=== PATIENT | female | born 1965 | race African-American/Black ===

== ENCOUNTER 2017-02-20 13:47 | Inpatient (IN) ==
[2017-02-20 14:18] LABS: Basophils % 0.3 % (0.0-0.8); Eosinophils # 0.1 10*3/uL (0.0-0.87); Eosinophils % 0.7 % (0.00-10.9); Hematocrit 35.7 VOL% (35.7-47.0); Hemoglobin 11.9 GM/DL (12.0-16.0); Immature Granulocytes % 0.5 %; Immature Granulocytes Absolute 0.05 #; Lymphocytes % 18.4 % (21.3-54.2); Mean Corpuscular HGB Conc 33.3 GM/DL (32-36); Mean Corpuscular Hemoglobin 31 PG (27-34); Mean Platelet Volume 10.2 FL (9.6-12.0); Monocytes # 0.7 10*3/uL (0.11-0.8); Monocytes % 6.6 % (1.7-12.7); Neutrophils # 7.9 10*3/uL (1.4-7.4); Neutrophils % 73.5 % (38.7-73.9); Platelet Count 189 T/CUMM (130-400); Red Blood Count 3.84 MC/CUMM (3.8-5.5); Red Cell Distribution Width 12.9 % (9.3-17.3); White Blood Count 10.7 T/CUMM (4-12)
[2017-02-20 14:44] LABS: Albumin 3.1 G/DL (3.4-5.0); Bilirubin,Total 0.4 MG/DL (0.2-1.0); Calcium 9.1 MG/DL (8.5-10.1); Osmolality,Calculated 279.7 MOS/KG (273-304); Total Protein 8.4 G/DL (6.4-8.3)
[2017-02-20] MEDS ORDERED: MORPHINE 2 MG/1 ML SYRINGE ONE (15:36)
[2017-02-20] MEDS ORDERED: ONDANSETRON 4 MG/2 ML VIAL ONE (15:37)
[2017-02-20] MEDS ORDERED: MORPHINE 2 MG/1 ML SYRINGE IM STA (15:37)
[2017-02-20] MEDS ORDERED: ONDANSETRON 4 MG/2 ML VIAL IM STA (15:38)
[2017-02-20] MEDS ORDERED: GLUCAGON 1 MG VIAL IM PRN (16:52)
[2017-02-20] MEDS ORDERED: DEXTROSE 50% 25 GM/50 ML VIAL IV PRN (16:52)
[2017-02-20] MEDS ORDERED: ONDANSETRON 4 MG/2 ML VIAL IV PRN (16:52)
[2017-02-20] MEDS: INSULIN NPH/REGULAR 70/30 100 UNIT/ML SUBCUT SCH (18:21)
[2017-02-20] MEDS: metFORMIN 500 MG TABLET PO SCH (18:21)
[2017-02-20] MEDS: MORPHINE 2 MG/1 ML SYRINGE IV PRN (19:58)
[2017-02-20] MEDS: PIPERACILLIN/TAZOBACTAM 3,375 MG in SODIUM CHLORIDE 0.9% 100 ML IV SCH (20:02)
[2017-02-20] MEDS: ENOXAPARIN 40 MG/0.4 ML SYRINGE SUBCUT SCH (21:36)
[2017-02-20] MEDS: INSULIN REGULAR 100 UNIT/ML SUBCUT SCH (21:37)
[2017-02-21] MEDS: PIPERACILLIN/TAZOBACTAM 3,375 MG in SODIUM CHLORIDE 0.9% 100 ML IV SCH ×3 (04:21→20:56)
[2017-02-21 05:40] LABS: Basophils % 0.3 % (0.0-0.8); Eosinophils % 0.3 % (0.00-10.9); Hematocrit 34.7 VOL% (35.7-47.0); Hemoglobin 11.5 GM/DL (12.0-16.0); Immature Granulocytes % 0.6 %; Immature Granulocytes Absolute 0.06 #; Lymphocytes # 1.5 10*3/uL (1.4-4.0); Lymphocytes % 15.4 % (21.3-54.2); Mean Corpuscular HGB Conc 33.1 GM/DL (32-36); Mean Corpuscular Hemoglobin 31 PG (27-34); Mean Platelet Volume 10.7 FL (9.6-12.0); Monocytes # 0.9 10*3/uL (0.11-0.8); Monocytes % 8.7 % (1.7-12.7); Neutrophils # 7.3 10*3/uL (1.4-7.4); Neutrophils % 74.7 % (38.7-73.9); Platelet Count 181 T/CUMM (130-400); Red Blood Count 3.77 MC/CUMM (3.8-5.5); White Blood Count 9.7 T/CUMM (4-12)
[2017-02-21 06:04] LABS: Calcium 8.6 MG/DL (8.5-10.1); Osmolality,Calculated 280.8 MOS/KG (273-304); Potassium 4.6 MMOL/L (3.5-5.1); Risk Ratio 3.23; VLDL CHOLESTEROL 15.4 MG/DL
[2017-02-21] MEDS: metFORMIN 500 MG TABLET PO SCH (08:20)
[2017-02-21] MEDS: INSULIN REGULAR 100 UNIT/ML SUBCUT SCH ×4 (08:20→21:03)
[2017-02-21] MEDS: INSULIN NPH/REGULAR 70/30 100 UNIT/ML SUBCUT SCH ×2 (08:20→16:56)
[2017-02-21] MEDS: LISINOPRIL 20 MG TABLET PO SCH (08:20)
[2017-02-21] MEDS ORDERED: ASPIRIN CHEW 81 MG TABLET PO ONE (09:15)
[2017-02-21] MEDS: PANTOPRAZOLE 20 MG TABLET PO SCH (09:19)
[2017-02-21] MEDS: METOPROLOL TARTRATE 25 MG TABLET PO SCH ×2 (09:22→21:02)
[2017-02-21] MEDS: MORPHINE 2 MG/1 ML SYRINGE IV PRN (12:39)
[2017-02-21] MEDS ORDERED: DEXTROSE 50% 25 GM/50 ML VIAL IV ONE (14:34)
[2017-02-21] MEDS ORDERED: PROPOFOL 200 MG/20 ML VIAL IV ONE (14:49)
[2017-02-21] MEDS ORDERED: MIDAZOLAM 2 MG/2 ML VIAL ONE (14:49)
[2017-02-21] MEDS ORDERED: fentaNYL 100 MCG/2 ML VIAL ONE (14:49)
[2017-02-21] MEDS ORDERED: KETAMINE 500 MG/10 ML VIAL ONE (14:50)
[2017-02-21] MEDS: ENOXAPARIN 40 MG/0.4 ML SYRINGE SUBCUT SCH (21:03)
[2017-02-22] MEDS: PIPERACILLIN/TAZOBACTAM 3,375 MG in SODIUM CHLORIDE 0.9% 100 ML IV SCH (04:06)
[2017-02-22] MEDS ORDERED: ASPIRIN CHEW 81 MG TABLET PO SCH (09:00)
[2017-02-22] MEDS: LISINOPRIL 20 MG TABLET PO SCH (09:02)
[2017-02-22] MEDS: PANTOPRAZOLE 20 MG TABLET PO SCH (09:03)
[2017-02-22] MEDS: INSULIN NPH/REGULAR 70/30 100 UNIT/ML SUBCUT SCH (09:03)
[2017-02-22] MEDS: INSULIN REGULAR 100 UNIT/ML SUBCUT SCH ×2 (09:03→12:50)
[2017-02-22] MEDS: METOPROLOL TARTRATE 25 MG TABLET PO SCH (09:03)
[2017-02-22] MEDS: MORPHINE 2 MG/1 ML SYRINGE IV PRN (10:00)
[2017-02-22] MEDS ORDERED: INSULIN NPH/REGULAR 70/30 100 UNIT/ML SUBCUT SCH (10:54)
[2017-02-22 11:42] VITALS: BP 136/68
[2017-02-22] MEDS ORDERED: metFORMIN 500 MG TABLET PO SCH (17:00)
== END 2017-02-22 15:10 | disposition home health service (06) | DRG 623 ==
LOC: EDBD → EDUNIT# → N.ED 13:47 → N.EDINP 16:51 → N.3E 17:50
PROVIDERS: ADMIT Hospitalist; ATTEND Hospitalist